=== PATIENT | female | born 1970 | race American Indian/Alaskan Native ===

== ENCOUNTER 2018-04-11 06:11 | Day surgery (SDC) | payer OTHER ==
[2018-04-10 11:16] VITALS: BMI 41.1
[2018-04-11 06:57] VITALS: RESP 18; O2SAT 98
[2018-04-11] MEDS ORDERED: Lactated Ringer's 1,000 ML IV ONE ×4 (07:00→12:00)
[2018-04-11] MEDS ORDERED: MethylPREDNISolone Depo 40 mg/ml Inj ONE (07:13)
[2018-04-11] MEDS ORDERED: Absorbable Gelatin Sponge Size 12-7 ONE (07:14)
[2018-04-11] MEDS ORDERED: Lidocaine 1% 20 MG/2 ML PF AMP ONE (07:14)
[2018-04-11] MEDS ORDERED: Bacitracin Ointment 30 GM TUBE ONE (07:14)
[2018-04-11] MEDS ORDERED: Thrombin Topical 5,000 Int Units Spray Kit ONE (07:15)
[2018-04-11 07:22] LABS: BASO % 0.2 % (0.0-2.0); EOS # 0.1 K/uL (0.0-0.7); HEMOGLOBIN 14.3 g/dL (12.0-16.0); LYMPH # 1.6 K/uL (1.0-4.3); LYMPH % 26.8 % (20.0-40.0); MEAN CELL VOLUME 91.3 fl (81.0-99.0); MEAN CORPUSCULAR HEMOGLOBIN 30.2 pg (27.0-31.0); MEAN CORPUSCULAR HGB CONC 33.1 g/dL (33.0-37.0); MONO # 0.5 K/uL (0.0-0.8); MONO % 8.2 % (0.0-10.0); NEUT # 3.8 K/uL (1.8-7.0); NEUT % 63.8 % (50.0-75.0); RBC 4.73 Mil/uL (3.80-5.20); RED CELL DISTRIBUTION WIDTH 13.7 % (11.5-14.5)
[2018-04-11] MEDS ORDERED: Liquid Adhesive TOP ONE (07:45)
[2018-04-11] MEDS ORDERED: Propofol 10 mg/ml Inj (20 ML) ONE ×6 (08:12→11:31)
[2018-04-11] MEDS ORDERED: Lidocaine 2% MPF (5 ml) Inj ONE (08:12)
[2018-04-11] MEDS ORDERED: Midazolam 2 MG/2 ML VIAL ONE (08:12)
[2018-04-11] MEDS ORDERED: Succinylcholine Chloride 20 mg/ml Syr (5 ml) IV ONE (08:13)
[2018-04-11] MEDS ORDERED: Rocuronium 10 mg/ml (5 ml) ONE ×2 (08:35→10:35)
[2018-04-11] MEDS ORDERED: ePHEDrine 50 mg/ml Inj ONE (08:46)
[2018-04-11] MEDS ORDERED: Dexamethasone 4 mg/1 ml ONE (11:02)
[2018-04-11] MEDS ORDERED: Vancomycin 1 g Inj IVPB ONE (11:45)
[2018-04-11] MEDS ORDERED: MethylPREDNISolone Depo 40 mg/ml Inj IM ONE (12:05)
[2018-04-11] MEDS ORDERED: Lidocaine 1% Inj (20ml) IJ ONE (12:05)
[2018-04-11] MEDS ORDERED: Lactated Ringer's 1,000 ML IV SCH (12:30)
[2018-04-11] MEDS: HYDROmorphone 0.5 mg/0.5 ml ISec IVP PRN ×4 (12:45→13:30)
[2018-04-11 17:26] VITALS: BP 125/78; PULSE 72; TEMP 97.4
--- NOTE | 2018-04-11 17:34 | RAD ---
Date of service: 04/11/2018 PROCEDURE: Fluoroscopic assistance in excess of 1 hour. HISTORY: ACDF COMPARISON: None TECHNIQUE: Standard protocol for this study/examination. FINDINGS: Total fluoroscopic time (continuous mode) utilized during the procedure 32.0 seconds. Total exam DLP: 7.85 (mGy). IMPRESSION: Submitted images from the current procedure: 12.0
== END 2018-04-11 17:50 | disposition home or self-care (01) ==
LOC: H.OPSURG 06:11
PROVIDERS: ATTEND Orthopaedic Surgery Orthopaedic Surgery of the Spine
DX: M54.2 Cervicalgia (principal); M19.90 Unspecified osteoarthritis, unspecified site; E78.5 Hyperlipidemia, unspecified; I10 Essential (primary) hypertension; K21.9 Gastro-esophageal reflux disease without esophagitis; D64.9 Anemia, unspecified
CPT/HCPCS: 20930; 22551; 22552; 22845; 22853; 36415; 85025; 86850; 86900; 88304; C1713; J0690; J1030; J1100; J1170; J2250; J2405; J2704; J2765; J3010; J7030; J7120